=== PATIENT | female | born 1990 | race Hispanic/Latino ===

== ENCOUNTER 2020-04-29 12:10 | Emergency (ER) | payer SELFPAY ==
[2020-04-29 12:25] VITALS: BP 119/74
--- NOTE | 2020-04-29 14:22 | Emergency Department Report ---
Upper Extremity - HPI Chief Complaint: Extremity Injury, Upper Stated Complaint: ARM AND SHOULDER PAIN Time Seen by Provider: 04/29/20 14:16 Upper Extremity: Left Shoulder Occurred When: >5 Days (2 weeks) Mechanism: Unsure Symptoms: Yes Pain with Movement, Yes Limited Range of Movement, Yes Numbness, No Deformity, No Weakness, No Swelling, No Bruising/Ecchymosis, No Laceration or Abrasion Other History: Is a pleasant 29-year-old female presents emerged department chief complaint of left shoulder pain over the past 2 weeks. She denies any s pecific injury. She reports pain is aggravated with range of motion. Pain is 6 out of 10 describes dull and throbbing and radiates to the upper back. She denies any associated fever, chills, night sweats, headache, dizziness, blurry vision, nausea, vomiting or diarrhea, chest pain, shortness of breath. ED Review of Systems ROS: Stated complaint: ARM AND SHOULDER PAIN Other details as noted in HPI Comment: All other systems reviewed and negative Constitutional: denies: chills, fever Eyes: denies: eye pain, eye discharge, vision change ENT: denies: ear pain, throat pain Respiratory: denies: cough, shortness of breath, wheezing Cardiovascular: denies: chest pain, palpitations Endocrine: no symptoms reported Gastrointestinal: denies: abdominal pain, nausea, diarrhea Genitourinary: denies: urgency, dysuria, discharge Musculoskeletal: as per HPI, arthralgia. denies: back pain, joint swelling Skin: denies: rash, lesions Neurological: denies: headache, weakness, paresthesias Psychiatric: denies: anxiety, depression Hematological/Lymphatic: denies: easy bleeding, easy bruising ED Past Medical Hx - Past Medical History Additional medical history: Vaginal delivery x 2 - Social History Smoking Status: Current Every Day Smoker Substance Use Type: None - Medications Home Medications: Home Medications Medication Instructions Recorded Confirmed Last Taken Type traMADoL [Ultram 50 MG tab] 50 mg PO Q6HR PRN #18 tablet 09/18/13 Unknown Rx methOCARBAMOL [Robaxin] 500 mg PO BID #30 tab 09/09/14 Unknown Rx Ibuprofen [Motrin 800 MG tab] 800 mg PO Q8H #30 tablet 12/06/14 Unknown Rx traMADoL [Ultram 50 MG tab] 50 mg PO Q6HR PRN #20 tablet 12/06/14 Unknown Rx Naproxen [Naprosyn] 500 mg PO BID #20 tablet 04/29/20 Unknown Rx methOCARBAMOL [Robaxin TAB] 500 mg PO Q6H #16 tablet 04/29/20 Unknown Rx Upper Extremity Exam - Exam General: Vital signs noted. No distress. Alert and acting appropriately. Head and Torso: No HEENT Abnormality, No Neck Tenderness, No Chest/Lungs Abnormality, No Abdominal Tenderness, No Back Tenderness Shoulder Exam: Yes Shoulder Tenderness (Pain with Us sign, pain with empty can test, negative drop arm test, normal radial pulses, normal distal sensation capillary refill. Normal passive range of motion of the elbow and wrist without pain. Able to perform Apley's maneuvers with minimal pain.), Yes Normal Range of Motion in Shoulder, No Clavicle Tenderness, No Shoulder Deformity, No AC Joint Tenderness Arm Exam: No Arm/Humerus Tenderness, No Arm Deformity Elbow: No Elbow Tenderness, No Normal Range of Motion in Elbow, No Elbow Deformity Forearm: No Forearm Tenderness, No Forearm Deformity, No Pain with Pronation, No Pain with Supination Wrist: Yes Normal ROM in Wrist, No Wrist Tenderness, No Wrist Deformity, No Snuffbox Tenderness, No Pain with Axial Thumb Compression Hand: Yes Normal ROM in Digit(s), No Hand Tenderness, No Hand Deformity, No Digit Tenderness, No Digit(s) Deformity, No Tendon Dysfunction CMS Exam: No Broken Skin, No Normal Distal Pulses, No Normal Capillary Refill, No Normal Distal Sensation ED Course Vital Signs 04/29/20 12:20 Temperature 98.1 F Pulse Rate 91 H Respiratory 18 Rate Blood Pressure 119/74 O2 Sat by Pulse 95 Oximetry ED Medical Decision Making - Radiology Data Radiology results: image reviewed interpreted by me: No acute fractures or dislocations, no acute bony abnormalities. - Medical Decision Making X-ray was unremarkable. No acute fracture or dislocation. Patient's exam was consistent with an impingement syndrome versus rotator cuff arthropathy. Recomm ended ice, anti-inflammatories, muscle relaxers and follow-up with orthopedics. Patient instructed to avoid using her sling too often to avoid developing a frozen shoulder. She is instructed to return the emerge formulation of else any changing worsening symptoms. She verbalized understanding the diagnosis, treatment plan and follow-up instructions and all her questions were answered. - Differential Diagnosis fracture, strain, sprain Critical care attestation.: If time is entered above; I have spent that time in minutes in the direct care of this critically ill patient, excluding procedure time. ED Disposition Clinical Impression: Sprain of shoulder, left Qualifiers: Encounter type: initial encounter Shoulder sprain type: rotator cuff capsule Qualified Code(s): S43.422A - Sprain of left rotator cuff capsule, initial encounter Disposition: TO HOME OR SELFCARE Is pt being admited?: No Condition: Stable Instructions: Shoulder Sprain (ED) Prescriptions: Naproxen [Naprosyn] 500 mg PO BID #20 tablet methOCARBAMOL [Robaxin TAB] 500 mg PO Q6H #16 tablet Referrals: PRIMARY CAREMD [Primary Care Provider] - 3-5 Days MALIK HALL MD [Staff Physician] - 3-5 Days Forms: Work/School Release Form(ED) Time of Disposition: 15:35
--- NOTE | 2020-04-29 16:00 | XRay Report ---
LEFT SHOULDER 3 VIEW(S) INDICATION / CLINICAL INFORMATION: pain, swelling COMPARISON: None available. FINDINGS: BONES / JOINT(S): No acute fracture or subluxation. No significant arthritis. SOFT TISSUES: No significant abnormality. ADDITIONAL FINDINGS: None. Signer Name: Ainsley Paulson MD Signed: 04/29/2020 3:55 PM Workstation Name: [id number]
== END 2020-04-29 15:43 | disposition home or self-care (01) ==
LOC: ED 12:10
DX: S43.402A Unspecified sprain of left shoulder joint, initial encounter (principal); F17.200 Nicotine dependence, unspecified, uncomplicated; Z88.0 Allergy status to penicillin; Z98.890 Other specified postprocedural states; Z79.899 Other long term (current) drug therapy; X58.XXXA Exposure to other specified factors, initial encounter; Y93.89 Activity, other specified; Y92.89 Other specified places as the place of occurrence of the external cause; Y99.8 Other external cause status
CPT/HCPCS: 99283